=== PATIENT | female | born 1995 | race Caucasian/White ===

== ENCOUNTER 2024-08-28 19:10 | Inpatient (IN) | payer BC ==
[~2024-08-28 19:10] MED LIST: DINOPROSTONE 10 MG VAGINAL SUPPOSITORY VG ONE
[2024-08-28] MEDS: LACTATED RINGERS SOLUTION 1,000 ML IV ONE (20:15)
[2024-08-28 20:39] LABS: ABSOLUTE IMMATURE GRANULOCYTES 0.12 x10^3/uL (0.0-0.031); BASOPHILS # 0.03 x10^3/uL (0.01-0.08); EOSINOPHIL % 0.4 % (0.7-5.8); EOSINOPHILS # 0.04 x10^3/uL (0.04-0.36); HEMATOCRIT 41.2 % (34.1-44.9); HEMOGLOBIN 13.5 g/dL (11.2-15.7); MCHC 32.8 g/dl (32.2-35.5); MEAN CELL VOLUME 83.2 fl (79.4-94.8); MEAN PLT VOLUME 10.5 fl (9.4-12.3); MONOCYTE # 0.81 x10^3/uL (0.24-0.86); MONOCYTE % 7.8 % (4.7-12.5); PLATELET COUNT 263 x10^3/uL (182-369); RDW 13.4 % (12.1-16.5)
[2024-08-28 20:48] VITALS: BMI 24.5
[2024-08-28 20:50] LABS: INR 1.03 (0.83-1.09); PROTHROMBIN TIME (PATIENT) 11.3 SEC (9.7-13.0)
[2024-08-28 20:53] LABS: ACTIVATED PTT 27.7 SECONDS (25.2-36.5)
[2024-08-28 21:04] LABS: POTASSIUM 3.9 mmol/L (3.5-5.1)
[2024-08-28 21:07] LABS: CALCIUM 9.8 mg/dL (8.5-10.1)
[2024-08-28 21:08] LABS: BLOOD UREA NITROGEN 9.7 mg/dL (7-18)
[2024-08-28 21:11] LABS: CREATININE 0.4 mg/dL (0.55-1.3)
[2024-08-28] MEDS: DINOPROSTONE 10 MG VAGINAL SUPPOSITORY VG ONE (21:35)
[2024-08-28] MEDS: LACTATED RINGERS SOLUTION 1,000 ML/1,000 ML INFUS.BAG IV SCH (23:09)
[2024-08-29] MEDS ORDERED: FENTANYL/BUPIVACAINE/NS/PF - PCEA - 50 ML DISP.SYRIN EP ONE ×3 (10:09→19:17)
[2024-08-29] MEDS: FENTANYL/BUPIVACAINE/NS/PF - PCEA - 50 ML DISP.SYRIN EP SCH (10:30)
[2024-08-29] MEDS ORDERED: NALOXONE HCL 0.4 MG/ML VIAL IVPUSH PRN (12:16)
[2024-08-29] MEDS ORDERED: OXYTOCIN 30 UNITS in 0.9% NS 30 UNIT/500 ML INFUS.BAG IVPB ONE (13:29)
[2024-08-29] MEDS: OXYTOCIN 30 UNITS in 0.9% NS 30 UNIT/500 ML INFUS.BAG IVPB SCH (13:30)
[2024-08-29] MEDS ORDERED: OXYTOCIN 20 UNITS in 0.9% NS 20 UNIT/1,000 ML INFUS.BAG IV ONE (19:17)
[2024-08-29] MEDS: OXYTOCIN 20 UNITS in 0.9% NS 20 UNIT/1,000 ML INFUS.BAG IV SCH (21:30)
[2024-08-29] MEDS ORDERED: METHYLERGONOVINE MALEATE 0.2 MG/1 ML AMP IM PRN (21:36)
[2024-08-29] MEDS ORDERED: ACETAMINOPHEN 325 MG TABLET (FP) PO PRN (21:36)
[2024-08-29] MEDS ORDERED: oxyCODONE HCL 5 MG TABLET PO PRN (21:36)
[2024-08-29] MEDS ORDERED: BISACODYL 10 MG SUPP.RECT RC PRN (21:36)
[2024-08-29] MEDS ORDERED: BENZOCAINE 28 GM HEMORRHOIDAL OINTMENT TP PRN (21:36)
[2024-08-29] MEDS ORDERED: WITCH HAZEL 50% (TUCKS) 40 PAD/JAR PAD TP PRN (21:36)
[2024-08-29] MEDS ORDERED: BENZOCAINE 20% 57 GM BOTTLE TP PRN (21:36)
[2024-08-29 21:48] LABS: CORD BASE EXCESS -7.7 mmol/L (0-2); CORD HCO3 21.9 mmHg (20-29); CORD PCO2 61.4 mmHg (30-78); CORD pH 7.171 (7.14-7.44)
[2024-08-29 21:50] LABS: CORD BASE EXCESS -4.9 mmol/L (0-2); CORD HCO3 20.2 mmHg (20-29); CORD PCO2 37.9 mmHg (30-78); CORD pH 7.344 (7.14-7.44)
[2024-08-30] MEDS: IBUPROFEN 600 MG TABLET (FP) PO PRN (00:32)
[2024-08-30 08:13] LABS: HEMOGLOBIN 12.6 g/dL (11.2-15.7); MCHC 32.3 g/dl (32.2-35.5); MEAN CELL VOLUME 85.3 fl (79.4-94.8); MEAN PLT VOLUME 10.5 fl (9.4-12.3); PLATELET COUNT 240 x10^3/uL (182-369); RDW 13.7 % (12.1-16.5)
[2024-08-30] MEDS: PRENATAL VITAMINS W/ FOLIC ACID TABLET (FP) PO SCH (10:06)
[2024-08-30 14:45] VITALS: RESP 18
[2024-08-30] MEDS ORDERED: SENNOSIDES/DOCUSATE COMBO (SENNA PLUS) TABLET (UD) PO PRN (22:00)
[2024-08-31] MEDS: diphenhydrAMINE HCL 25 MG CAPSULE (FP) PO PRN (01:31)
[2024-08-31 10:31] VITALS: BP 124/75; PULSE 120; TEMP 98.4
[2024-08-31] MEDS: TRIAMCINOLONE ACET 0.1% 60 ML LOTION TP SCH ×2 (10:38→11:27)
== END 2024-08-31 18:45 | disposition home or self-care (01) | DRG 807 ==
LOC: JLDR 19:10 → J3W 08-30 00:37
PROVIDERS: ADMIT Obstetrics & Gynecology; ATTEND Obstetrics & Gynecology
PROC: 10E0XZZ Delivery of Products of Conception, External Approach (ICD-10-PCS; principal; 2024-08-29)
PROC: 0W8NXZZ Division of Female Perineum, External Approach (ICD-10-PCS; 2024-08-29)
PROC: 3E0P7VZ Introduction of Hormone into Female Reproductive, Via Natural or Artificial Opening (ICD-10-PCS; 2024-08-29)
DX: O48.0 Post-term pregnancy (principal); Z3A.40 40 weeks gestation of pregnancy; Z37.0 Single live birth
CPT/HCPCS: 36415; 36600; 59409; 80048; 82803; 85025; 85610; 85730; 86780; 86850; 86900; 86901